=== PATIENT | female | born 1985 | race Caucasian/White ===

== ENCOUNTER 2025-03-03 14:45 | Emergency (ER) | payer BC, OTHER ==
[2025-03-03 14:50] VITALS: BP 159/84; PULSE 96; RESP 18; TEMP 98.5
[2025-03-03 15:00] LABS: Glucose,Whole Blood 115 mg/dL (70-110)
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
[2025-03-03 15:23] LABS: Basophils # (A) 0.07 10*3/uL (0.00-0.10); Basophils % (A) 0.6 %; Eosinophils # (A) 0.12 10*3/uL (0.04-0.35); Eosinophils % (A) 1.1 %; HCT 37.9 % (37.2-46.3); HGB 12.6 g/dL (12.0-15.0); Lymphocytes # (A) 2.59 10*3/uL (0.90-5.00); Lymphocytes % (A) 23.9 %; MCH 26.8 pg (27.0-32.0); MCHC 33.2 g/dL (32.0-37.0); MCV 80.5 fL (80.0-97.0); Monocytes % (A) 4.6 %; Neutrophils # (A) 7.53 10*3/uL (1.80-7.70); Neutrophils % (A) 69.5 %; Platelet Count 337 10*3/uL (140-440); RBC 4.71 10*6/uL (4.10-5.20); RDW 12.1 % (11.5-14.5); WBC 10.84 10*3/uL (4.50-10.00)
[2025-03-03 15:31] LABS: Partial Thromboplastin Time 23.7 sec (22.0-30.0); Prothrombin Time 10.9 sec (10.0-12.5)
[2025-03-03 15:35] LABS: ALT 17 U/L (4-34); AST 22 U/L (14-36); African American GFR (CKD) >90 (>60 ml/min/1.73 sqM); Albumin 4.8 g/dL (3.5-5.0); Alcohol <10 mg/dL; Alkaline Phosphatase 61 U/L (38-126); Anion Gap 8 mmol/L; Blood Urea Nitrogen 18 mg/dL (7-17); Calcium 9.6 mg/dL (8.4-10.2); Carbon Dioxide 26 mmol/L (22-30); Chloride 103 mmol/L (98-107); Glucose 119 mg/dL (74-99); Non-African American GFR(CKD) >90 (>60 ml/min/1.73 sqM); Potassium 3.7 mmol/L (3.5-5.1); Sodium 137 mmol/L (137-145); Total Bilirubin 0.4 mg/dL (0.2-1.3); Total Protein 7.8 g/dL (6.3-8.2)
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
[2025-03-03 16:18] LABS: Amphetamine Screen,Urine Not Detected (NotDetected); Barbiturate Screen,Urine Not Detected (NotDetected); Benzodiazepines Screen,Urine Not Detected (NotDetected); Cocaine Screen,Urine Not Detected (NotDetected); Methadone Screen, Urine Not Detected (NotDetected); Opiate Screen,Urine Not Detected (NotDetected); Oxycodone Screen, Urine Not Detected (NotDetected); Phencyclidine Screen,Urine Not Detected (NotDetected); Tricyclic Antidepressant,Urine Not Detected (NotDetected); Urn Cannabinoid Scrn Not Detected (NotDetected)
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
[2025-03-03] MEDS: SODIUM CHLORIDE 0.9% 500 ML 500 ML IV STA (16:28)
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
== END 2025-03-03 18:02 | disposition home or self-care (01) ==
LOC: EC 14:45
DX: S16.1XXA Strain of muscle, fascia and tendon at neck level, initial encounter (principal); S06.0X0A Concussion without loss of consciousness, initial encounter; R40.2410 Glasgow coma scale score 13-15, unspecified time; V43.52XA Car driver injured in collision with other type car in traffic accident, initial encounter
CPT/HCPCS: 36415; 70450; 71045; 72050; 72125; 72170; 80053; 80306; 80320; 85025; 85610; 85730; 86850; 86900; 86901; 93005; 99291